=== PATIENT | female | born 1995 | race Caucasian/White ===

== ENCOUNTER 2018-11-04 11:33 | Emergency (ER) | payer SELFPAY ==
[~2018-11-04] VITALS: Ht 172.7 cm; Wt 112.0 kg
[2018-11-04 11:37] VITALS: Ht 172.7 cm; Wt 112.0 kg
[2018-11-04] MEDS ORDERED: SOD CHLORIDE 0.9% 1,000 ML IV STA (11:57)
[2018-11-04] MEDS ORDERED: morphine 4 MG/ML VIAL IV STA (11:57)
[2018-11-04] MEDS ORDERED: ONDANSETRON 4 MG INJ IV STA (11:57)
[2018-11-04] MEDS ORDERED: ACETAMINOPHEN 500 MG TAB PO STA (13:08)
--- NOTE | 2018-11-04 14:37 | ERD ---
ER Documentation Chief Complaint Chief Complaint pt is bib friend with c/o vag bleeding x 2 wks denies HPI 23-year-old female is here complaining of vaginal bleeding that she is had for 2 weeks intermittently. She states she does have a history of ovarian cyst so she believes that is from that. She is also complaining of pelvic pain. No fever. No nausea or vomiting. She states she does not believe she is . She did have an 2 months ago. No dysuria or frequency. ROS All systems reviewed and are negative except as per history of present illness. Allergies Allergies: Coded Allergies: No Known Allergy (Unverified , 11/04/18) PMhx/Soc Hx Alcohol Use: No Hx Substance Use: No Hx Tobacco Use: No Smoking Status: Never smoker FmHx Family History: No diabetes Physical Exam Vitals Vital Signs Date Temp Pulse Resp B/P (MAP) Pulse Ox O2 O2 Flow FiO2 Time Delivery Rate 11/04/18 98.3 100 16 138/83 99 11:37 (101) Physical Exam INITIAL VITAL SIGNS: Reviewed by me GENERAL: Awake, alert and oriented x 4, well appearing, nontoxic, speaking in full sentences. No acute distress HEAD: Atraumatic RESPIRATORY: Clear to auscultation bilaterally. Symmetric chest wall rise. No wheezing or rales. No accessory muscle use. CV: Regular rate and rhythm. No murmurs, rubs, or gallops. ABDOMEN: Soft, non-distended. Nontender. Negative Newman. Negative McBurneys point tenderness. No CVA tenderness bilaterally. No guarding. No rebound. Result Diagram: 11/04/18 1307 11/04/18 1307 Results 24 hrs Laboratory Tests Test 11/04/18 12:35 11/04/18 12:43 11/04/18 13:07 Urine Color ELIZ Urine Clarity CLOUDY Urine pH 7.0 Urine Specific [place] 1.020 Urine Ketones NEGATIVE mg/dL Urine Nitrite NEGATIVE mg/dL Urine Bilirubin NEGATIVE mg/dL Urine Urobilinogen NEGATIVE mg/dL Urine Leukocyte Esterase NEGATIVE Tessa/ul Urine Microscopic RBC > 182 /HPF Urine Microscopic WBC 181 /HPF Urine Bacteria FEW /HPF Urine Mucus FEW /HPF Urine Hemoglobin 3+ mg/dL Urine Glucose NEGATIVE mg/dL Urine Total Protein 2+ mg/dl POC Beta HCG, Qualitative POSITIVE White Blood Count 12.7 10^3/ul Red Blood Count 4.74 10^6/ul Hemoglobin 13.8 g/dl Hematocrit 41.7 % Mean Corpuscular Volume 88.0 fl Mean Corpuscular Hemoglobin 29.1 pg Mean Corpuscular 33.1 g/dl Hemoglobin Concent Red Cell Distribution Width 12.3 % Platelet Count 320 10^3/UL Mean Platelet Volume 9.8 fl Immature Granulocytes % 0.600 % Neutrophils % 79.5 % Lymphocytes % 13.7 % Monocytes % 5.8 % Eosinophils % 0.1 % Basophils % 0.3 % Nucleated Red Blood Cells % 0.0 /100WBC Immature Granulocytes # 0.070 10^3/ul Neutrophils # 10.1 10^3/ul Lymphocytes # 1.7 10^3/ul Monocytes # 0.7 10^3/ul Eosinophils # 0.0 10^3/ul Basophils # 0.0 10^3/ul Nucleated Red Blood Cells # 0.0 10^3/ul Sodium Level 137 mmol/L Potassium Level 4.0 mmol/L Chloride Level 99 mmol/L Carbon Dioxide Level 26 mmol/L Anion Gap 12 Blood Urea Nitrogen 8 mg/dl Creatinine 0.61 mg/dl Est Glomerular Filtrat > 60 mL/min Rate mL/min Glucose Level 106 mg/dl Calcium Level 9.3 mg/dl Total Bilirubin 0.3 mg/dl Direct Bilirubin 0.00 mg/dl Indirect Bilirubin 0.3 mg/dl Aspartate Amino 19 IU/L Transf (AST/SGOT) Alanine 19 IU/L Aminotransferase (ALT/SGPT) Alkaline Phosphatase 91 IU/L Total Protein 8.7 g/dl Albumin 4.5 g/dl Globulin 4.20 g/dl Albumin/Globulin Ratio 1.07 Lipase 107 U/L Beta HCG, Quantitative 47.6 mIU/ml Current Medications Medications Dose Sig/Viridiana Start Time Status Last (Trade) Ordered Route PRN Stop Time Admin Dose Reason Admin Sodium 1,000 ml @ Q1H STAT 11/04/18 DC 11/04/18 Chloride 1,000 mls/hr IV 11:57 13:13 11/04/18 12:56 Morphine 4 mg ONCE STAT 11/04/18 Cancel Sulfate IV 11:57 (morphine) 11/04/18 11:58 Ondansetron 4 mg ONCE STAT 11/04/18 DC 11/04/18 HCl (Zofran IV 11:57 13:13 Inj) 11/04/18 11:59 1,000 mg ONCE STAT 11/04/18 DC 11/04/18 Acetaminophen PO 13:08 13:13 (Tylenol 11/04/18 13:09 Tab) Procedures/MDM Patient here for vaginal bleeding. She states she did not believe she was her test did come back positive. However her beta hCG is low at 47 and ultrasound did not show any IUP. Unclear as to whether she was pr egnant and is now having a miscarriage. She is hemodynamically stable. She was given copies of all her labs and ultrasound report. Patient counseled regarding my diagnostic impression and care plan. Prior to discharge all questions answered. Pt agrees with treatment plan and understands strict return precautions. Pt is instructed to follow up with primary care provider within 24- 48 hours. Precautionary instructions provided including instructions to return to the ER if not improving or for any worsening or changing symptoms or concerns. Departure Diagnosis: Primary Impression: Threatened Condition: Stable Patient Instructions: Vaginal Bleed in Additional Instructions: Call your primary care doctor TOMORROW for an appointment during the next 1-2 days.See the doctor sooner or return here if your condition worsens before your appointment time. SONIA GLEZ PA-C Nov 04, 2018 14:37
[2018-11-04 15:05] VITALS: BP 125/79; PULSE 91; RESP 16
== END 2018-11-04 15:06 | disposition home or self-care (01) ==
LOC: FTE 11:33
DX: O20.0 Threatened abortion (principal)
CPT/HCPCS: 76830; 76856; 80053; 81001; 81025; 83690; 84702; 85025; 86900; 86901; 96374; 99285; J2405; J7030